=== PATIENT | male | born 1975 | race Caucasian/White ===

== ENCOUNTER 2020-12-14 02:01 | Inpatient (IN) | payer SELFPAY ==
[~2020-12-14] VITALS: Ht 185.4 cm; Wt 111.5 kg
--- NOTE | 2020-12-14 02:22 | NUR ---
RECEIVED REPORT FROM ERNESTO Garza RN, WILLIE. PATIENT ARRIVAL TO SURGICAL UNIT PENDING, TO BE TRANSPORTED VIA EMS.
--- NOTE | 2020-12-14 03:00 | NUR ---
PATIENT TO ROOM 328 PER EMS CART.
[2020-12-14 03:11] VITALS: BP 123/77; PULSE 49; TEMP 98.1
--- NOTE | 2020-12-14 03:18 | NUR ---
INFORMED INSIGHT DIRECTOR HOSPITALIST PROVIDER OF PATIENT'S ARRIVAL TO ROOM 328
--- NOTE | 2020-12-14 04:22 | NUR ---
CLARIFIED WITH HOSP MUSIC LIBRARY ASSISTANT PROVIDER REGARDING DIET ORDER, PATIENT ABLE TO SWALLOW SIPS OF WATER WITH NO OBSERVED DIFFICULTY OR REPORTED PROBLEMS WITH SWALLOWING. SEE ORDER FOR DIET ENTERED.
--- NOTE | 2020-12-14 04:25 | NUR ---
LEFT MESSAGE FOR PATIENT'S PARENTS TO CALL THIS NURSE TO CLARIFY ALLERGY, WITH PATIENT UNABLE TO VERIFY IF HE HAD AN MEDICATION ALLERGIC REACTION BACK IN 2010 AND CLARIFY IF PATIENT HAD COVID VACCINE THAT PATIENT WAS UNABLE TO VERIFY IF HE HAD VACCINE OR NOT. WAITING ELEVATOR OPERATOR BACK FROM PATIENT'S PARENTS.
--- NOTE | 2020-12-14 06:16 | NUR ---
ATTEMPTED TO CALL PATIENT'S PARENTS, CALL IS NOT PICKED UP/UNABLE TO LEAVE MESSAGE DUE TO "MAIL BOX IS FULL". WILL LET DAY NURSE KNOW OF NEED TO CONTACT PARENTS FOR ALLERGY CLARIFICATION AND COVID VACCINATION VERIFICATION.
--- NOTE | 2020-12-14 07:07 | NUR ---
CHANGE OF SHIFT REPORT GIVEN TO DAY SHIFT NURSEVINCENT RN.
[2020-12-14 07:18] VITALS: BP 123/69; PULSE 53; TEMP 97.9
--- NOTE | 2020-12-14 09:00 | NUR ---
roundnadir. Full neuro assessment completed. Hospitalist rounding as well. Breakfast ordered.
[2020-12-14 11:46] LABS: BASO % 0.5 % (0.0-2.0); EOS # 0.1 (0.0-0.7); EOS % 1.9 % (0-4.0); GRAN # 3.1 (1.4-6.5); GRAN % 52.3 % (42.2-75.2); HEMATOCRIT 49.7 % (42.0-52.0); HEMOGLOBIN 16.4 g/dl (13.5-18.0); LYMPH # 2.3 (1.2-3.4); LYMPH % 38.2 % (20.0-51.0); MEAN CELL VOLUME 87 fl (80.0-100.0); MEAN CORPUSCULAR HEMOGLOBIN 29 pg (27.0-31.0); MEAN CORPUSCULAR HGB CONC 33 g/dl (33.0-37.0); MEAN PLATELET VOLUME 10.4 fl (7.4-10.4); MONO # 0.4 (0.1-0.6); MONO % 6.4 % (1.7-9.3); PLATELET COUNT 158 K/mm3 (130-400); RED BLOOD COUNT 5.69 M/mm3 (4.20-5.60); REDCELL DISTRIBUTION WIDTH-CV 12.5 % (11.5-14.5)
[2020-12-14 11:50] LABS: INR 1.1 (0.8-3.0); PROTHROMBIN TIME 12.2 SECONDS (9.7-12.8)
[2020-12-14 11:52] LABS: PARTIAL THROMBOPLASTIN TIME 33.3 SECONDS (26.0-37.0)
[2020-12-14 11:55] VITALS: BP 126/83; PULSE 49; TEMP 98.2
[2020-12-14 11:59] LABS: CALCIUM 8.7 mg/dL (8.4-10.2); CREATININE, serum 0.71 (0.66-1.25); POTASSIUM 3.9 mmol/L (3.4-5.0)
[2020-12-14 12:10] LABS: MAGNESIUM 1.8 mg/dL (1.6-2.3); PHOSPHOROUS 3.9 mg/dL (2.5-4.5)
--- NOTE | 2020-12-14 12:50 | NUR ---
Patient finished a shower. Insulin prior to lunch. He has been busy with therapy this am. He supportive mother at bedside.
--- NOTE | 2020-12-14 15:05 | NUR ---
Patient to MRI with [facility]. Will await his return
--- NOTE | 2020-12-14 15:20 | NUR ---
construction pit worker attempted to meet with patient to discuss discharge plan. Patient not in room. Will try again at a later time.
[2020-12-14 15:54] VITALS: BP 134/81; PULSE 52; TEMP 97.6
--- NOTE | 2020-12-14 18:35 | NUR ---
Patient resting in bed. denies needs. Ivf per orders. Tolerated dinner. Will report off to nightnurse
[2020-12-14 20:23] VITALS: BP 114/66; PULSE 48; TEMP 98.7
--- NOTE | 2020-12-14 21:00 | NUR ---
PT TAKES HS MED WITHOUT PROBLEM. HAS LARGE UMBILICAL HERNIA NOTED. DENIES PAIN. IS ORIENTED, HAS SOME APHASIA, ABLE TO ANSWER SIMPLE QUESTIONS. IVF TO LEFT FOREARM INFUSING WITHOUT PROBLEM.
[2020-12-15 00:05] VITALS: BP 131/84; PULSE 49; TEMP 98
--- NOTE | 2020-12-15 00:13 | NUR ---
PT ORIENTED X3, APHASIA NOTED. ABLE TO ANSWER EASY QUESTIONS, KNOWS MONTH AND AGE. NO DEFICITS TO ARMS OR LEGS.
[2020-12-15 04:02] VITALS: BP 131/76; PULSE 53; TEMP 97.6
--- NOTE | 2020-12-15 06:04 | NUR ---
TAKES SCHEDULED AM MED WITHOUT PROBLEM.
[2020-12-15 07:33] LABS: BASO % 0.3 % (0.0-2.0); EOS # 0.1 (0.0-0.7); EOS % 1.3 % (0-4.0); GRAN # 4.4 (1.4-6.5); GRAN % 59.1 % (42.2-75.2); LYMPH # 2.4 (1.2-3.4); LYMPH % 32.1 % (20.0-51.0); MEAN CELL VOLUME 87 fl (80.0-100.0); MEAN CORPUSCULAR HEMOGLOBIN 29 pg (27.0-31.0); MEAN CORPUSCULAR HGB CONC 33 g/dl (33.0-37.0); MEAN PLATELET VOLUME 10.8 fl (7.4-10.4); MONO # 0.5 (0.1-0.6); MONO % 6.7 % (1.7-9.3); PLATELET COUNT 149 K/mm3 (130-400); REDCELL DISTRIBUTION WIDTH-CV 12.2 % (11.5-14.5)
[2020-12-15 07:44] LABS: CALCIUM 8.5 mg/dL (8.4-10.2); CHOLESTEROL RISK RATIO 8.6; CREATININE, serum 0.68 (0.66-1.25)
[2020-12-15 07:53] VITALS: BP 124/74; PULSE 47; TEMP 98.5
[2020-12-15] MEDS ORDERED: PLAVIX 75MG TAB75 MG PO (11:21)
[2020-12-15] MEDS ORDERED: ASPIRIN 81M81 MG/TA2 PO (11:21)
[2020-12-15] MEDS ORDERED: LIPITOR 40MG TA40 MG PO (11:21)
[2020-12-15] MEDS ORDERED: GLUCOPHAGE500 MG/TAB PO (11:21)
--- NOTE | 2020-12-15 11:35 | NUR ---
field crop farm worker met with patient to discuss discharge plan. Patient lives and works in [place] but is here because his parents live in [place]. Patient is unsure of how long he will be staying with his parents. Worker suggests that he stay with his parents until he can figure some things out post diagnosis. Patient agrees to this. Patient does have insurance through his employer, but did not have his card with him. Worker suggests to call his HR and see if they can email a copy of it to him. Educated patient that the hospital will need a copy of that information for his treatment and that he will need it for his perscriptions that he will be going home with. Patient states he generally uses [facility] for a pharmacy and does not currently have a PCP. Patient will be set up with Jessica for hospital follow up. Patient reportshe has been fully independent with activities of daily living and uses no DME to assist with mobility. *Discharge plan: Home with parents*
[2020-12-15 12:05] VITALS: BP 125/79; PULSE 59; TEMP 98.7
--- NOTE | 2020-12-15 14:44 | NUR ---
fountain worker met with patient to address insurance status. Patient's mother present at bedside. Mother states the patient is living with her and her and is not working and does not have insurance. fountain worker will provide medication voucher to be dispensed at [facility]. audit control clerk is going to establish therapy with [facility] outpatient therapy. Patients mother states a financial assistance application given at [facility]'s ER. fountain worker educated patient and patient's mother that the application will be good for [facility], [facility] and [facility] therapy. Educated that the application will need to be filled out and mailed back in. Patient encouraged to establish PCP with [facility] and that they can manage medications. *Discharge plan: Home with parents*
--- NOTE | 2020-12-15 15:36 | NUR ---
Discharge instructions reviewed with patient and parent, verbalized understanding. Discharged via wheelchair to auto/home with parent at 1510.
== END 2020-12-15 15:10 | disposition home or self-care (01) | DRG 66 ==
LOC: MEDICAL 02:01 → SURG 03:15
PROVIDERS: Nurse Practitioner Family; Physician Assistant; ADMIT Internal Medicine
DX: I63.89 Other cerebral infarction (principal); R47.01 Aphasia; E11.9 Type 2 diabetes mellitus without complications; F17.210 Nicotine dependence, cigarettes, uncomplicated; Z20.822 Contact with and (suspected) exposure to COVID-19; I10 Essential (primary) hypertension
CPT/HCPCS: 99222-AI; 99239; A9585; J1650; J1815; J7030